=== PATIENT | female | born 1980 | race Caucasian/White ===

== ENCOUNTER 2017-09-16 11:54 | Emergency (ER) | payer MEDICAID ==
[~2017-09-16] VITALS: Ht 177.8 cm; Wt 56.7 kg
--- NOTE | 2017-09-16 12:00 | NUR ---
Dr andrews at the bedside for eval and exam.
[2017-09-16] MEDS ORDERED: LEVE1000 PO (12:12)
[2017-09-16] MEDS ORDERED: OXCA600T5 PO (12:13)
[2017-09-16 12:30] VITALS: BP 152/97
--- NOTE | 2017-09-16 12:32 | NUR ---
Patient discharged to home in stable conditon. Written and verbal after care instructions given. Patient verbalizes understanding of instructions. Pt left ER w/ steady gait.
== END 2017-09-16 12:37 | disposition home or self-care (01) ==
LOC: ER 11:54
DX: R07.81 Pleurodynia (principal); Z90.49 Acquired absence of other specified parts of digestive tract; Z79.899 Other long term (current) drug therapy
CPT/HCPCS: 71101; A4663